=== PATIENT | male | born 1925 | race Asian ===

== ENCOUNTER 2016-11-10 13:42 | Inpatient (IN) | payer MEDICARE, OTHER ==
[~2016-11-10] VITALS: Ht 167.6 cm; Wt 84.9 kg
[~2016-11-10 13:42] MED LIST: ALLO100T PO; ASPI-1093 PO; ATOR20TA86 PO; CARV12 PO; CLOP75 PO; FINA5TAB41 PO; FURO40 PO; GABA-529 PO; HYDR-3965 PO; INSLAN SQ; LEVO250 PO; LISI-660 PO; MET500 PO; METF500T4 PO; MULT-71 PO; TAMS0.4C32 PO
[2016-11-10 14:22] LABS: GLUCOSE,POINT OF CARE 220 MG/DL (70-110)
[2016-11-10 16:52] LABS: BASOPHILS % (AUTO) 0.6 % (0.0-2.0); EOSINOPHILS % (AUTO) 4.7 % (1.0-6.0); HEMATOCRIT 41.5 % (41-53); HEMOGLOBIN 13.2 g/dL (13.5-17.5); LYMPHOCYTES # (AUTO) 1.7 K/uL (1.0-4.8); LYMPHOCYTES % (AUTO) 26.4 % (22.0-44.0); MEAN CORPUSCULAR HEMOGLOBIN 27.7 pg (26.0-34.0); MEAN CORPUSCULAR HGB CONC 31.7 G/dL (31.0-37.0); MEAN CORPUSCULAR VOLUME 87 fL (80-100); MONOCYTES # (AUTO) 0.6 K/uL (0.1-1.0); MONOCYTES % (AUTO) 8.7 % (2.0-9.0); NEUTROPHILS # (AUTO) 3.8 K/uL (1.8-7.7); NEUTROPHILS % (AUTO) 59.6 % (40.0-70.0); PLATELET COUNT (AUTO) 219 K/uL (150-450); RED BLOOD CELL COUNT(AUTO) 4.76 MIL/uL (4.50-5.90); RED CELL DISTRIBUTION WIDTH 14.8 % (11.5-14.5); WHITE BLOOD COUNT (AUTO) 6.4 K/uL (4.5-11.0)
[2016-11-10 17:03] LABS: ANION GAP 11 mmol/L (8-16); CALCIUM, TOTAL 9.4 mg/dL (8.8-10.5); CARBON DIOXIDE 27 mmol/L (22-29); CHLORIDE 103 mmol/L (98-107); CREATININE 0.89 mg/dL (0.60-1.30); GLOMERULAR FILTR. RATE CALC > 60 mL/min (>60); POTASSIUM 4.2 mmol/L (3.5-5.1); PROTHROMBIN TIME 10.7 SEC (9.4-11.6); SODIUM SERUM 141 mmol/L (136-145); UREA NITROGEN, BLOOD 17 mg/dL (7-18)
[2016-11-10] MEDS ORDERED: NITROGLYCERIN 2% (1 GM=INCH) PACKET TP ONE (17:15)
[2016-11-10] MEDS ORDERED: ASPIRIN 81 MG CHEWABLE TABLET PO ONE (17:15)
[2016-11-10 17:18] LABS: B-TYPE NATRIURETIC PEPTIDE 171 pg/mL (0-100)
[2016-11-10 17:29] LABS: ALANINE AMINOTRANSFERASE 36 U/L (12-78); ALBUMIN 3.6 g/dL (3.4-5.0); ASPARTATE AMINOTRANSFERASE 25 U/L (15-37); BILIRUBIN,TOTAL 0.5 mg/dL (0.1-1.0); CREATINE KINASE MB 1.5 ng/mL (0-5); CREATINE KINASE, TOTAL 136 U/L (39-308); TOTAL PROTEIN, SERUM 8.1 g/dL (6.4-8.2)
[2016-11-10 18:00] LABS: APPEARANCE,URINE CLEAR (CLEAR); GLUCOSE, URINE (UA) NEGATIVE (NEGATIVE); KETONES,URINE NEGATIVE (NEGATIVE); LEUKOCYTE ESTERASE ,URINE NEGATIVE (NEGATIVE); OCCULT BLOOD,URINE NEGATIVE (NEGATIVE); PROTEIN,URINE SEE CONFIRM (NEGATIVE)
[2016-11-10 18:01] LABS: ADD UA MICROSCOPIC YES
[2016-11-10 18:10] LABS: SULFOSALICYLIC ACID,URINE Negative (Negative)
[2016-11-10 18:12] LABS: RBC,URINE 0-2 /HPF (0-2); SQUAMOUS EPITHELIAL CELL,UR Rare /LPF (None Seen); WBC,URINE 0-2 /HPF (0-5)
[2016-11-10 18:32] LABS: GLUCOSE,POINT OF CARE 89 MG/DL (70-110)
[2016-11-10] MEDS ORDERED: CloNIDine HCL 0.2 MG TABLET PO ONE (19:15)
[2016-11-10] MEDS ORDERED: VALS160T2 PO (19:27)
[2016-11-10] MEDS ORDERED: CloNIDine HCL 0.1 MG TABLET ONE (19:31)
[2016-11-10] MEDS ORDERED: ONDANSETRON HCL 4 MG/2 ML VIAL IVP PRN (20:00)
[2016-11-10] MEDS ORDERED: 0.9% SODIUM CHLORIDE 10 ML SYRINGE IVP PRN (20:00)
[2016-11-10] MEDS ORDERED: OxyCODONE HCL/ACETAMINOPHEN 5-325 MG TABLET PO PRN ×2 (20:00)
[2016-11-10] MEDS ORDERED: ACETAMINOPHEN 325 MG TABLET PO PRN (20:00)
[2016-11-10 20:59] VITALS: BP 145/64
[2016-11-10] MEDS ORDERED: PNEUMOCOCCAL VACCINE POLYVALENT 0.5 ML VIAL [PPSV23] IM ONE (22:30)
[2016-11-10 23:49] VITALS: BP 134/59
[2016-11-11] VITALS (8 sets, daily range): BP systolic 102–163; BP diastolic 47–88
[2016-11-11] MEDS ORDERED: METHOCARBAMOL 500 MG TABLET PO PRN (03:00)
[2016-11-11] MEDS ORDERED: NITROGLYCERIN 2% (1 GM=INCH) PACKET TP PRN (03:00)
[2016-11-11] MEDS ORDERED: HYDROCODONE/ACETAMINOPHEN 5-325 MG TABLET PO PRN (03:00)
[2016-11-11] MEDS ORDERED: MORPHINE SULFATE 2 MG/ML SYRINGE IVP PRN (03:00)
[2016-11-11] MEDS ORDERED: NITROGLYCERIN 0.4 MG SUBLINGUAL TABLET #25 SL PRN (03:00)
[2016-11-11] MEDS: CARVEDILOL 12.5 MG TABLET PO SCH ×3 (05:13→20:27)
[2016-11-11 06:59] LABS: BASOPHILS % (AUTO) 0.9 % (0.0-2.0); EOSINOPHILS % (AUTO) 6.4 % (1.0-6.0); HEMATOCRIT 37.5 % (41-53); LYMPHOCYTES # (AUTO) 1.9 K/uL (1.0-4.8); LYMPHOCYTES % (AUTO) 32.3 % (22.0-44.0); MEAN CORPUSCULAR HEMOGLOBIN 28.2 pg (26.0-34.0); MEAN CORPUSCULAR HGB CONC 31.9 G/dL (31.0-37.0); MEAN CORPUSCULAR VOLUME 88 fL (80-100); MONOCYTES # (AUTO) 0.6 K/uL (0.1-1.0); MONOCYTES % (AUTO) 10.5 % (2.0-9.0); NEUTROPHILS % (AUTO) 49.9 % (40.0-70.0); PLATELET COUNT (AUTO) 194 K/uL (150-450); RED BLOOD CELL COUNT(AUTO) 4.24 MIL/uL (4.50-5.90); RED CELL DISTRIBUTION WIDTH 14.6 % (11.5-14.5)
[2016-11-11 07:20] LABS: ALANINE AMINOTRANSFERASE 29 U/L (12-78); ANION GAP 8 mmol/L (8-16); ASPARTATE AMINOTRANSFERASE 21 U/L (15-37); BILIRUBIN,TOTAL 0.5 mg/dL (0.1-1.0); CALCIUM, TOTAL 8.7 mg/dL (8.8-10.5); CARBON DIOXIDE 28 mmol/L (22-29); CHLORIDE 104 mmol/L (98-107); CREATININE 0.88 mg/dL (0.60-1.30); GLOMERULAR FILTR. RATE CALC > 60 mL/min (>60); POTASSIUM 3.6 mmol/L (3.5-5.1); SODIUM SERUM 140 mmol/L (136-145); TOTAL PROTEIN, SERUM 6.9 g/dL (6.4-8.2); UREA NITROGEN, BLOOD 17 mg/dL (7-18)
[2016-11-11] MEDS: ASPIRIN 81 MG EC TABLET PO SCH (09:43)
[2016-11-11] MEDS: ATORVASTATIN CALCIUM 20 MG TABLET PO SCH (09:43)
[2016-11-11] MEDS: TAMSULOSIN HCL 0.4 MG CAPSULE PO SCH (09:43)
[2016-11-11] MEDS: FINASTERIDE 5 MG TABLET PO SCH (09:43)
[2016-11-11] MEDS: CLOPIDOGREL BISULFATE 75 MG TABLET PO SCH (09:43)
[2016-11-11] MEDS: ALLOPURINOL 100 MG TABLET PO SCH (09:43)
[2016-11-11] MEDS: GABAPENTIN 100 MG CAPSULE PO SCH (09:43)
[2016-11-11] MEDS: INSULIN DETEMIR 100 UNITS/ML SQ SCH (09:49)
[2016-11-11] MEDS: FUROSEMIDE 40 MG TABLET PO SCH (09:50)
[2016-11-11 09:56] LABS: GLUCOSE,POINT OF CARE 89 MG/DL (70-110)
[2016-11-11] MEDS: LISINOPRIL 5 MG TABLET PO SCH (11:56)
[2016-11-11] MEDS: VALSARTAN 160 MG TABLET PO SCH (12:30)
[2016-11-11] MEDS ORDERED: DEXTROSE 50%-WATER 25 GM/50 ML SYRINGE IVP PRN (13:30)
[2016-11-11] MEDS: INSULIN ASPART 100 UNITS/ML SQ PRN ×2 (18:06→20:30)
[2016-11-11] MEDS: HYDROCODONE/ACETAMINOPHEN 5-325 MG TABLET PO PRN (19:41)
[2016-11-12 04:12] VITALS: BP 139/73
[2016-11-12] MEDS: HYDROCODONE/ACETAMINOPHEN 5-325 MG TABLET PO PRN ×2 (05:22→13:49)
[2016-11-12 07:07] LABS: CHOL/HDL RATIO 2.8 (4.2-7.3)
[2016-11-12 07:09] VITALS: BP 156/58
[2016-11-12] MEDS: ASPIRIN 81 MG EC TABLET PO SCH (08:34)
[2016-11-12] MEDS: FUROSEMIDE 40 MG TABLET PO SCH (08:34)
[2016-11-12] MEDS: CARVEDILOL 12.5 MG TABLET PO SCH (08:34)
[2016-11-12] MEDS: VALSARTAN 160 MG TABLET PO SCH (08:34)
[2016-11-12] MEDS: ATORVASTATIN CALCIUM 20 MG TABLET PO SCH (08:34)
[2016-11-12] MEDS: TAMSULOSIN HCL 0.4 MG CAPSULE PO SCH (08:34)
[2016-11-12] MEDS: GABAPENTIN 100 MG CAPSULE PO SCH (08:34)
[2016-11-12] MEDS: FINASTERIDE 5 MG TABLET PO SCH (08:35)
[2016-11-12] MEDS: LISINOPRIL 5 MG TABLET PO SCH (08:35)
[2016-11-12] MEDS: CLOPIDOGREL BISULFATE 75 MG TABLET PO SCH (08:35)
[2016-11-12] MEDS: INSULIN DETEMIR 100 UNITS/ML SQ SCH (08:37)
[2016-11-12] MEDS: ALLOPURINOL 100 MG TABLET PO SCH (09:00)
[2016-11-12 11:07] VITALS: BP 147/58
[2016-11-12] MEDS: INSULIN ASPART 100 UNITS/ML SQ PRN (12:26)
[2016-11-13 13:38] LABS: GLUCOSE,POINT OF CARE 79 MG/DL (70-110)
[2016-11-13 13:38] LABS: GLUCOSE,POINT OF CARE 102 MG/DL (70-110)
[2016-11-13 13:38] LABS: GLUCOSE,POINT OF CARE 269 MG/DL (70-110)
[2016-11-13 13:38] LABS: GLUCOSE,POINT OF CARE 179 MG/DL (70-110)
[2016-11-13 13:38] LABS: GLUCOSE,POINT OF CARE 179 MG/DL (70-110)
[2016-11-13 13:38] LABS: GLUCOSE,POINT OF CARE 187 MG/DL (70-110)
== END 2016-11-12 14:25 | disposition home or self-care (01) | DRG 206 ==
LOC: EMS 13:44 → 5N 20:00 → 5S 11-12 04:59
PROVIDERS: ADMIT Internal Medicine; ATTEND Internal Medicine
PROC: 3E0234Z Introduction of Serum, Toxoid and Vaccine into Muscle, Percutaneous Approach (ICD-10-PCS; principal; 2016-11-12)
DX: M94.0 Chondrocostal junction syndrome [Tietze] (principal); R07.89 Other chest pain; E11.9 Type 2 diabetes mellitus without complications; I25.10 Atherosclerotic heart disease of native coronary artery without angina pectoris; E78.00 Pure hypercholesterolemia, unspecified; G89.29 Other chronic pain; I10 Essential (primary) hypertension; M54.30 Sciatica, unspecified side; Z53.29 Procedure and treatment not carried out because of patient's decision for other reasons; E78.5 Hyperlipidemia, unspecified; Z88.0 Allergy status to penicillin; Z95.1 Presence of aortocoronary bypass graft; Z86.73 Personal history of transient ischemic attack (TIA), and cerebral infarction without residual deficits; Z91.013 Allergy to seafood; Z79.82 Long term (current) use of aspirin; Z23 Encounter for immunization; Z85.9 Personal history of malignant neoplasm, unspecified
CPT/HCPCS: 82962; 90471; 93005; 93306; 99285

== ENCOUNTER 2016-11-28 12:22 | Emergency (ER) | payer MEDICARE, OTHER ==
[~2016-11-28] VITALS: Ht 167.6 cm; Wt 88.2 kg
[~2016-11-28 12:22] MED LIST changes: +VALS160T2 PO
[2016-11-28 12:32] LABS: GLUCOSE,POINT OF CARE 133 MG/DL (70-110)
[2016-11-28] MEDS ORDERED: TraMADol HCL 50 MG TABLET PO ONE (12:45)
[2016-11-28 13:24] LABS: BASOPHILS % (AUTO) 0.8 % (0.0-2.0); EOSINOPHILS % (AUTO) 7.8 % (1.0-6.0); HEMOGLOBIN 12.8 g/dL (13.5-17.5); LYMPHOCYTES # (AUTO) 1.3 K/uL (1.0-4.8); MEAN CORPUSCULAR VOLUME 87 fL (80-100); MONOCYTES # (AUTO) 0.5 K/uL (0.1-1.0); NEUTROPHILS # (AUTO) 2.9 K/uL (1.8-7.7); NEUTROPHILS % (AUTO) 56.4 % (40.0-70.0); PLATELET COUNT (AUTO) 222 K/uL (150-450); RED BLOOD CELL COUNT(AUTO) 4.57 MIL/uL (4.50-5.90); RED CELL DISTRIBUTION WIDTH 14.5 % (11.5-14.5); WHITE BLOOD COUNT (AUTO) 5.1 K/uL (4.5-11.0)
[2016-11-28 13:32] LABS: PROTHROMBIN TIME 10.6 SEC (9.4-11.6)
[2016-11-28 13:39] LABS: ANION GAP 9 mmol/L (8-16); CALCIUM, TOTAL 8.8 mg/dL (8.8-10.5); CARBON DIOXIDE 28 mmol/L (22-29); CHLORIDE 102 mmol/L (98-107); CREATININE 0.91 mg/dL (0.60-1.30); GLOMERULAR FILTR. RATE CALC > 60 mL/min (>60); POTASSIUM 3.9 mmol/L (3.5-5.1); SODIUM SERUM 139 mmol/L (136-145); UREA NITROGEN, BLOOD 19 mg/dL (7-18)
[2016-11-28 13:43] LABS: ALANINE AMINOTRANSFERASE 33 U/L (12-78); ALBUMIN 3.5 g/dL (3.4-5.0); ASPARTATE AMINOTRANSFERASE 25 U/L (15-37); BILIRUBIN,TOTAL 0.5 mg/dL (0.1-1.0); TOTAL PROTEIN, SERUM 7.6 g/dL (6.4-8.2)
[2016-11-28] MEDS ORDERED: SODIUM CHLORIDE 0.9% 500 ML IV ONE (14:30)
[2016-11-28] MEDS ORDERED: AMLO-511 PO (15:07)
[2016-11-28] MEDS ORDERED: ISOR40SR PO (15:10)
[2016-11-28 16:00] VITALS: BP 151/74
== END 2016-11-28 16:33 | disposition home or self-care (01) ==
LOC: EMS 12:24
DX: G43.909 Migraine, unspecified, not intractable, without status migrainosus (principal); E11.9 Type 2 diabetes mellitus without complications; E78.00 Pure hypercholesterolemia, unspecified; I10 Essential (primary) hypertension; I25.10 Atherosclerotic heart disease of native coronary artery without angina pectoris; Z79.82 Long term (current) use of aspirin; Z79.4 Long term (current) use of insulin; Z86.73 Personal history of transient ischemic attack (TIA), and cerebral infarction without residual deficits; Z88.0 Allergy status to penicillin; Z91.013 Allergy to seafood; Z95.1 Presence of aortocoronary bypass graft; Z98.61 Coronary angioplasty status
CPT/HCPCS: 36415; 70450; 80053; 82962; 85025; 85610; 99285; J7040

== ENCOUNTER 2017-06-28 16:35 | Inpatient (IN) | payer MEDICARE, OTHER ==
[~2017-06-28] VITALS: Ht 165.1 cm; Wt 87.7 kg
[~2017-06-28 16:35] MED LIST changes: +AMLO-511 PO; -ASPI-1093 PO; +ASPI-1188 PO; +ISOR40SR PO; -LISI-660 PO; -MULT-71 PO; +MULT1TAB70 PO; +PANT40TA25 PO
[2017-06-28 17:13] LABS: GLUCOSE,POINT OF CARE 157 MG/DL (70-110)
[2017-06-28] MEDS ORDERED: ALBUTEROL SULFATE 2.5 MG/0.5 ML NEB SOLUTION NEB ONE (17:30)
[2017-06-28] MEDS ORDERED: IPRATROPIUM BROMIDE 0.5 MG/2.5 ML NEB SOLUTION NEB ONE (17:30)
[2017-06-28 18:01] LABS: BASOPHILS # (AUTO) 0.08 K/uL (0.00-0.20); BASOPHILS % (AUTO) 1.3 % (0.0-2.0); HEMATOCRIT 37.4 % (41-53); HEMOGLOBIN 12.6 g/dL (13.5-17.5); LYMPHOCYTES # (AUTO) 1.5 K/uL (1.0-4.8); LYMPHOCYTES % (AUTO) 23.7 % (22.0-44.0); MEAN CORPUSCULAR HEMOGLOBIN 29.1 pg (26.0-34.0); MEAN CORPUSCULAR HGB CONC 33.7 G/dL (31.0-37.0); MEAN CORPUSCULAR VOLUME 86 fL (80-100); MONOCYTES # (AUTO) 0.7 K/uL (0.1-1.0); MONOCYTES % (AUTO) 11.2 % (2.0-9.0); NEUTROPHILS # (AUTO) 3.4 K/uL (1.8-7.7); NEUTROPHILS % (AUTO) 55.7 % (40.0-70.0); PLATELET COUNT (AUTO) 226 K/uL (150-450); RED BLOOD CELL COUNT(AUTO) 4.33 MIL/uL (4.50-5.90); RED CELL DISTRIBUTION WIDTH 14.3 % (11.5-14.5)
[2017-06-28 18:15] LABS: ANION GAP 5 mmol/L (8-16); CALCIUM, TOTAL 8.6 mg/dL (8.8-10.5); CARBON DIOXIDE 30 mmol/L (22-29); CHLORIDE 105 mmol/L (98-107); CREATININE 0.98 mg/dL (0.60-1.30); GLOMERULAR FILTR. RATE CALC > 60 mL/min (>60); GLUCOSE,RANDOM 148 mg/dL (70-110); POTASSIUM 3.7 mmol/L (3.5-5.1); SODIUM SERUM 140 mmol/L (136-145); UREA NITROGEN, BLOOD 14 mg/dL (7-18)
[2017-06-28 18:30] LABS: B-TYPE NATRIURETIC PEPTIDE 286 pg/mL (0-100)
[2017-06-28 18:36] LABS: ALANINE AMINOTRANSFERASE 48 U/L (12-78); ALBUMIN 3.1 g/dL (3.4-5.0); ALKALINE PHOSPHATASE 104 U/L (46-116); ASPARTATE AMINOTRANSFERASE 31 U/L (15-37); BILIRUBIN,TOTAL 0.4 mg/dL (0.1-1.0); CREATINE KINASE MB 2.3 ng/mL (0-5); CREATINE KINASE, TOTAL 194 U/L (39-308); TOTAL PROTEIN, SERUM 7.6 g/dL (6.4-8.2)
[2017-06-28 19:01] LABS: APPEARANCE,URINE CLEAR (CLEAR); BILIRUBIN,URINE NEGATIVE (NEGATIVE); GLUCOSE, URINE (UA) NEGATIVE (NEGATIVE); KETONES,URINE NEGATIVE (NEGATIVE); LEUKOCYTE ESTERASE ,URINE NEGATIVE (NEGATIVE); NITRATE,URINE NEGATIVE (NEGATIVE); OCCULT BLOOD,URINE NEGATIVE (NEGATIVE); UROBILINOGEN,URINE 0.2 mg/dL (<=1.0)
[2017-06-28 19:12] LABS: INFLUENZA TYPE A NEGATIVE FOR TYPE A (NEGATIVE); INFLUENZA TYPE B NEGATIVE FOR TYPE B (NEGATIVE)
[2017-06-28 19:18] LABS: PROTEIN,URINE NEGATIVE (NEGATIVE)
[2017-06-28] MEDS ORDERED: NITROGLYCERIN 2% (1 GM=INCH) PACKET TP ONE (19:30)
[2017-06-28] MEDS ORDERED: OSELTAMIVIR PHOSPHATE 75 MG CAPSULE PO ONE (19:30)
[2017-06-28] MEDS ORDERED: FUROSEMIDE 40 MG/4 ML VIAL IVP ONE (19:30)
[2017-06-28] MEDS ORDERED: ASPIRIN 81 MG CHEWABLE TABLET PO ONE (19:30)
[2017-06-28] MEDS ORDERED: 0.9% SODIUM CHLORIDE 10 ML SYRINGE IVP PRN (22:45)
[2017-06-28] MEDS ORDERED: DEXTROSE 50%-WATER 25 GM/50 ML SYRINGE IVP PRN ×2 (22:45→23:30)
[2017-06-28] MEDS ORDERED: ACETAMINOPHEN 325 MG TABLET PO PRN (22:45)
[2017-06-28] MEDS ORDERED: INSULIN ASPART 100 UNITS/ML SQ PRN (22:45)
[2017-06-28] MEDS ORDERED: ONDANSETRON HCL 4 MG/2 ML VIAL IVP PRN (22:45)
[2017-06-28] MEDS ORDERED: HYDROCODONE/ACETAMINOPHEN 5-325 MG TABLET PO PRN (23:30)
[2017-06-28] MEDS: FUROSEMIDE 40 MG/4 ML VIAL IVP SCH (23:30)
[2017-06-28] MEDS: CARVEDILOL 12.5 MG TABLET PO SCH (23:34)
[2017-06-28] MEDS: INSULIN GLARGINE,HUM.REC.ANLOG 100 UNITS/ML SQ SCH (23:36)
[2017-06-28 23:41] VITALS: BP 173/75
[2017-06-28] MEDS ORDERED: ALBUTEROL SULFATE 2.5 MG/0.5 ML NEB SOLUTION NEB PRN (23:45)
[2017-06-28] MEDS ORDERED: IPRATROPIUM BROMIDE 0.5 MG/2.5 ML NEB SOLUTION NEB PRN ×3 (23:45)
[2017-06-29] VITALS (9 sets, daily range): BP systolic 108–176; BP diastolic 41–72
[2017-06-29] MEDS ORDERED: IPRATROPIUM BROMIDE 0.5 MG/2.5 ML NEB SOLUTION NEB SCH ×3 (02:00)
[2017-06-29] MEDS ORDERED: ALBUTEROL SULFATE 2.5 MG/0.5 ML NEB SOLUTION NEB SCH ×2 (02:00)
[2017-06-29] MEDS: ALBUTEROL SULFATE 2.5 MG/0.5 ML NEB SOLUTION NEB SCH ×4 (03:23→20:00)
[2017-06-29] MEDS: IPRATROPIUM BROMIDE 0.5 MG/2.5 ML NEB SOLUTION NEB SCH ×4 (03:23→20:00)
[2017-06-29] MEDS ORDERED: INFLUENZA VIRUS VACCINE QVS 2017-18 (3YR+)/PF 60 MCG/0.5 ML SYRINGE IM ONE (04:45)
[2017-06-29] MEDS ORDERED: -PHARMACY VACCINE NOTE- MISC ONE (04:45)
[2017-06-29] MEDS: INSULIN ASPART 100 UNITS/ML SQ PRN ×4 (06:08→22:23)
[2017-06-29 07:59] LABS: BASOPHILS # (AUTO) 0.04 K/uL (0.00-0.20); BASOPHILS % (AUTO) 0.6 % (0.0-2.0); EOSINOPHILS # (AUTO) 0.46 K/uL (0.00-0.70); EOSINOPHILS % (AUTO) 6.18 % (1.0-6.0); HEMATOCRIT 38.2 % (41-53); HEMOGLOBIN 12.6 g/dL (13.5-17.5); LYMPHOCYTES # (AUTO) 1.5 K/uL (1.0-4.8); LYMPHOCYTES % (AUTO) 19.9 % (22.0-44.0); MEAN CORPUSCULAR HEMOGLOBIN 29.1 pg (26.0-34.0); MEAN CORPUSCULAR VOLUME 88 fL (80-100); MONOCYTES # (AUTO) 0.9 K/uL (0.1-1.0); MONOCYTES % (AUTO) 11.6 % (2.0-9.0); NEUTROPHILS # (AUTO) 4.6 K/uL (1.8-7.7); NEUTROPHILS % (AUTO) 61.8 % (40.0-70.0); PLATELET COUNT (AUTO) 224 K/uL (150-450); RED BLOOD CELL COUNT(AUTO) 4.33 MIL/uL (4.50-5.90); RED CELL DISTRIBUTION WIDTH 14.4 % (11.5-14.5)
[2017-06-29] MEDS: ASPIRIN 81 MG EC TABLET PO SCH (08:10)
[2017-06-29] MEDS: CLOPIDOGREL BISULFATE 75 MG TABLET PO SCH (08:10)
[2017-06-29] MEDS: FINASTERIDE 5 MG TABLET PO SCH (08:10)
[2017-06-29] MEDS: ALLOPURINOL 100 MG TABLET PO SCH (08:10)
[2017-06-29] MEDS: PANTOPRAZOLE SODIUM 40 MG DR TABLET PO SCH (08:10)
[2017-06-29] MEDS: TAMSULOSIN HCL 0.4 MG CAPSULE PO SCH (08:10)
[2017-06-29] MEDS: AmLODIPine BESYLATE 5 MG TABLET PO SCH ×2 (08:10→21:00)
[2017-06-29] MEDS: VALSARTAN 160 MG TABLET PO SCH (08:10)
[2017-06-29] MEDS: MetFORMIN HCL 500 MG TABLET PO SCH ×2 (08:10→18:15)
[2017-06-29] MEDS: ATORVASTATIN CALCIUM 20 MG TABLET PO SCH (08:10)
[2017-06-29] MEDS: ISOSORBIDE DINITRATE 40 MG PO SCH (08:11)
[2017-06-29] MEDS: CARVEDILOL 12.5 MG TABLET PO SCH ×2 (08:12→21:00)
[2017-06-29] MEDS: FUROSEMIDE 40 MG/4 ML VIAL IVP SCH ×2 (08:12→21:40)
[2017-06-29] MEDS: GABAPENTIN 100 MG CAPSULE PO SCH (08:20)
[2017-06-29 09:15] LABS: PROSTATE SPECIFIC ANTIGEN 0.17 ng/mL (0.00-4.00)
[2017-06-29 09:31] LABS: HEMOGLOBIN A1C 6.9 % (4.5-6.2)
[2017-06-29] MEDS: INSULIN GLARGINE,HUM.REC.ANLOG 100 UNITS/ML SQ SCH ×2 (09:34→21:49)
[2017-06-29 10:04] LABS: ALANINE AMINOTRANSFERASE 41 U/L (12-78); ALKALINE PHOSPHATASE 92 U/L (46-116); ASPARTATE AMINOTRANSFERASE 25 U/L (15-37); BILIRUBIN,TOTAL 0.6 mg/dL (0.1-1.0); CALCIUM, TOTAL 8.8 mg/dL (8.8-10.5); CARBON DIOXIDE 30 mmol/L (22-29); CHOL/HDL RATIO 3.4 (4.2-7.3); CHOLESTEROL 137 mg/dL (131-200); CREATININE 0.97 mg/dL (0.60-1.30); GLOMERULAR FILTR. RATE CALC > 60 mL/min (>60); GLUCOSE,RANDOM 116 mg/dL (70-110); HDL CHOLESTEROL 40 mg/dL (40-60); LDL CHOL (CALC.) 61 mg/dL (0-130); THYROID STIMULATING HORMONE 5.05 uIU/mL (0.36-3.74); TOTAL PROTEIN, SERUM 7.3 g/dL (6.4-8.2); TRIGLYCERIDES 178 mg/dL (15-150); UREA NITROGEN, BLOOD 14 mg/dL (7-18)
[2017-06-29 10:21] LABS: ANION GAP 8 mmol/L (8-16); CHLORIDE 104 mmol/L (98-107); POTASSIUM 3.2 mmol/L (3.5-5.1); SODIUM SERUM 142 mmol/L (136-145)
[2017-06-29] MEDS ORDERED: POTASSIUM CHLORIDE 20 MEQ ER TABLET PO PRN (11:30)
[2017-06-29] MEDS ORDERED: POTASSIUM CHL 10 MEQ/WATER 50 ML IV PRN (11:30)
[2017-06-29] MEDS: PROMETHAZINE HCL/CODEINE 6.25-10MG/5ML SYRUP UDCUP PO PRN (18:15)
[2017-06-29 23:48] LABS: GLUCOMETER DEV NAME(LOC) 5S 2N; GLUCOSE,POINT OF CARE 125 MG/DL (70-110)
[2017-06-29 23:48] LABS: GLUCOMETER DEV NAME(LOC) 5S 2N; GLUCOSE,POINT OF CARE 188 MG/DL (70-110)
[2017-06-29 23:48] LABS: GLUCOMETER DEV NAME(LOC) 5S 2N; GLUCOSE,POINT OF CARE 145 MG/DL (70-110)
[2017-06-29 23:48] LABS: GLUCOMETER DEV NAME(LOC) 5S 2N; GLUCOSE,POINT OF CARE 211 MG/DL (70-110)
[2017-06-30] MEDS: ALBUTEROL SULFATE 2.5 MG/0.5 ML NEB SOLUTION NEB SCH ×2 (02:11→07:44)
[2017-06-30] MEDS: IPRATROPIUM BROMIDE 0.5 MG/2.5 ML NEB SOLUTION NEB SCH ×2 (02:11→07:44)
[2017-06-30 03:01] VITALS: BP 144/68
[2017-06-30] MEDS: PROMETHAZINE HCL/CODEINE 6.25-10MG/5ML SYRUP UDCUP PO PRN ×2 (03:02→11:45)
[2017-06-30 04:04] VITALS: BP 100/51
[2017-06-30] MEDS: INSULIN ASPART 100 UNITS/ML SQ PRN ×2 (06:18→12:34)
[2017-06-30 07:29] LABS: CARBON DIOXIDE 30 mmol/L (22-29); CREATININE 1.01 mg/dL (0.60-1.30); GLOMERULAR FILTR. RATE CALC > 60 mL/min (>60); GLUCOSE,RANDOM 128 mg/dL (70-110); UREA NITROGEN, BLOOD 20 mg/dL (7-18)
[2017-06-30 07:43] LABS: ANION GAP 8 mmol/L (8-16); CALCIUM, TOTAL 8.8 mg/dL (8.8-10.5); CHLORIDE 103 mmol/L (98-107); POTASSIUM 3.5 mmol/L (3.5-5.1); SODIUM SERUM 141 mmol/L (136-145)
[2017-06-30 08:01] VITALS: BP 117/74
[2017-06-30] MEDS: AmLODIPine BESYLATE 5 MG TABLET PO SCH (08:21)
[2017-06-30] MEDS: VALSARTAN 160 MG TABLET PO SCH (08:21)
[2017-06-30] MEDS: TAMSULOSIN HCL 0.4 MG CAPSULE PO SCH (08:22)
[2017-06-30] MEDS: PANTOPRAZOLE SODIUM 40 MG DR TABLET PO SCH (08:22)
[2017-06-30] MEDS: FINASTERIDE 5 MG TABLET PO SCH (08:22)
[2017-06-30] MEDS: ASPIRIN 81 MG EC TABLET PO SCH (08:22)
[2017-06-30] MEDS: MetFORMIN HCL 500 MG TABLET PO SCH (08:22)
[2017-06-30] MEDS: ATORVASTATIN CALCIUM 20 MG TABLET PO SCH (08:22)
[2017-06-30] MEDS: FUROSEMIDE 40 MG/4 ML VIAL IVP SCH (08:23)
[2017-06-30] MEDS: GABAPENTIN 100 MG CAPSULE PO SCH (09:00)
[2017-06-30 09:21] VITALS: BP 140/53
[2017-06-30] MEDS: CLOPIDOGREL BISULFATE 75 MG TABLET PO SCH (09:21)
[2017-06-30] MEDS: ALLOPURINOL 100 MG TABLET PO SCH (09:21)
[2017-06-30] MEDS: CARVEDILOL 12.5 MG TABLET PO SCH (09:21)
[2017-06-30] MEDS: ISOSORBIDE DINITRATE 40 MG PO SCH (09:22)
[2017-06-30] MEDS: INSULIN GLARGINE,HUM.REC.ANLOG 100 UNITS/ML SQ SCH (09:23)
[2017-06-30] MEDS ORDERED: FURO40 PO (11:01)
[2017-06-30] MEDS ORDERED: PROMVCC5L PO (11:05)
[2017-06-30 11:42] VITALS: BP 130/70
[2017-06-30 15:33] LABS: GLUCOMETER DEV NAME(LOC) 5S 1L; GLUCOSE,POINT OF CARE 153 MG/DL (70-110)
[2017-06-30 15:34] LABS: GLUCOMETER DEV NAME(LOC) 5S 1L; GLUCOSE,POINT OF CARE 152 MG/DL (70-110)
[2017-06-30 15:34] LABS: GLUCOMETER DEV NAME(LOC) 5S 1L; GLUCOSE,POINT OF CARE 149 MG/DL (70-110)
[2017-07-02 07:07] LABS: GLUCOMETER DEV NAME(LOC) 5S 2N; GLUCOSE,POINT OF CARE 142 MG/DL (70-110)
== END 2017-06-30 14:00 | disposition home or self-care (01) | DRG 152 ==
LOC: EMS 16:41 → 5S 21:45
PROVIDERS: ADMIT Internal Medicine; ATTEND Internal Medicine
DX: J11.1 Influenza due to unidentified influenza virus with other respiratory manifestations (principal); I50.33 Acute on chronic diastolic (congestive) heart failure; I69.354 Hemiplegia and hemiparesis following cerebral infarction affecting left non-dominant side; E11.42 Type 2 diabetes mellitus with diabetic polyneuropathy; N13.8 Other obstructive and reflux uropathy; I11.0 Hypertensive heart disease with heart failure; I50.9 Heart failure, unspecified; E78.5 Hyperlipidemia, unspecified; I44.0 Atrioventricular block, first degree; I25.5 Ischemic cardiomyopathy; N40.1 Benign prostatic hyperplasia with lower urinary tract symptoms; I25.10 Atherosclerotic heart disease of native coronary artery without angina pectoris; Z88.0 Allergy status to penicillin; Z91.013 Allergy to seafood; Z79.2 Long term (current) use of antibiotics; Z79.82 Long term (current) use of aspirin; Z79.4 Long term (current) use of insulin; Z79.899 Other long term (current) drug therapy; Z95.1 Presence of aortocoronary bypass graft; Z95.5 Presence of coronary angioplasty implant and graft; Z85.038 Personal history of other malignant neoplasm of large intestine
CPT/HCPCS: 82962; 83036; 83735; 84132; 84153; 84443; 87040; 87804; 90471; 93005; 93306; 94640; 96374; 99285; J1815; J1940

== ENCOUNTER → 2017-07-11 | Outpatient (CLI) | payer MEDICARE, OTHER ==
[~2017-07-11] MED LIST changes: -ALLO100T PO; -GABA-529 PO; -LEVO250 PO; +PROMVCC5L PO
[2017-07-11 12:48] LABS: ANION GAP 9 mmol/L (8-16); CALCIUM, TOTAL 8.6 mg/dL (8.8-10.5); CARBON DIOXIDE 26 mmol/L (22-29); CHLORIDE 102 mmol/L (98-107); CREATININE 0.99 mg/dL (0.60-1.30); GLOMERULAR FILTR. RATE CALC > 60 mL/min (>60); GLUCOSE,RANDOM 156 mg/dL (70-110); POTASSIUM 3.9 mmol/L (3.5-5.1); SODIUM SERUM 137 mmol/L (136-145); UREA NITROGEN, BLOOD 21 mg/dL (7-18)
[2017-07-11 13:04] LABS: B-TYPE NATRIURETIC PEPTIDE 155 pg/mL (0-100)
== END | disposition home or self-care (01) ==
LOC: LABPV 12:13
PROVIDERS: ATTEND Internal Medicine
DX: I67.89 Other cerebrovascular disease (principal); I25.10 Atherosclerotic heart disease of native coronary artery without angina pectoris; E11.44 Type 2 diabetes mellitus with diabetic amyotrophy; I50.32 Chronic diastolic (congestive) heart failure

== ENCOUNTER → 2017-08-08 | Outpatient (CLI) | payer MEDICARE, OTHER ==
[2017-08-08 10:07] LABS: ANION GAP 7 mmol/L (8-16); CARBON DIOXIDE 30 mmol/L (22-29); CHLORIDE 104 mmol/L (98-107); CHOL/HDL RATIO 3.2 (4.2-7.3); CHOLESTEROL 188 mg/dL (131-200); CREATININE 0.96 mg/dL (0.60-1.30); GLOMERULAR FILTR. RATE CALC > 60 mL/min (>60); GLUCOSE,RANDOM 128 mg/dL (70-110); HDL CHOLESTEROL 58 mg/dL (40-60); LDL CHOL (CALC.) 87 mg/dL (0-130); POTASSIUM 4.3 mmol/L (3.5-5.1); SODIUM SERUM 141 mmol/L (136-145); TRIGLYCERIDES 217 mg/dL (15-150); UREA NITROGEN, BLOOD 21 mg/dL (7-18)
== END | disposition home or self-care (01) ==
LOC: LABPV 09:15
PROVIDERS: ATTEND Internal Medicine
DX: E11.9 Type 2 diabetes mellitus without complications (principal); I10 Essential (primary) hypertension; E78.5 Hyperlipidemia, unspecified
CPT/HCPCS: 83036